=== PATIENT | female | born 1940 | race Caucasian/White ===

== ENCOUNTER 2018-03-26 18:54 | Inpatient (IN) | payer OTHER ==
[~2018-03-26] VITALS: Ht 154.9 cm; Wt 71.2 kg
[~2018-03-26 18:54] MED LIST: ASPIRIN CHILDRE81 MG PO; ATORVASTATIN CA20 MG PO; CIPROFLOXACIN500 MG PO; FIORICET 325 MG1 TAB PO; HYGROTON 25MG T25 MG PO; IMITREX50 MG PO; KLOR-CON 10MEQ10 MEQ PO; LIORESAL 10MG T10 MG PO; LISINOPRIL10 MG PO; MACROBID100 MG PO; METFORMIN ER500 MG PO; METFORMIN HCL500 MG PO; MOTRIN 600 MG600 MG PO; TYLENOL TAB 32325 MG PO; ULTRAM(MONOGRAP50 MG PO
--- NOTE | 2018-03-26 19:55 | CT SCAN REPORT ---
EXAMINATION: CT HEAD WITHOUT CONTRAST CT CERVICAL SPINE WITHOUT CONTRAST CLINICAL INFORMATION: Fall. COMPARISON: Head CT from 08/31/2015. TECHNIQUE: Contiguous axial imaging was performed from the skullbase to vertex without intravenous administration of contrast. Multidetector helical imaging was performed through the cervical spine. DLP: 881.07 mGy-cm. FINDINGS: HEAD: There is no evidence of acute intracranial hemorrhage or territorial infarction. No abnormal mass effect or midline shift is seen. Pires to white matter differentiation is well preserved. No extra-axial fluid collections are identified. There is no evidence of hydrocephalus. There are multiple lacunar infarcts in the deep pires matter structures. Mild small vessel ischemic changes noted in the cerebral white matter. The osseous structures and soft tissues are normal. The mastoid air cells and visualized portions of the paranasal sinuses are well aerated. CERVICAL SPINE: No acute fracture is identified in the cervical spine moderate disc space narrowing and mild posterior subluxation noted at C5-C6. Moderate degenerative endplate spurring also present at C6-C7. Multilevel uncovertebral joint hypertrophy present with facet arthropathy encroaching upon the neural foramina. The atlantoaxial articulation is normally maintained. The paraspinal soft tissues are normal. Moderate atherosclerotic calcifications present at the carotid bifurcations. The lung apices are clear. IMPRESSION: 1. No acute intracranial hemorrhage or territorial infarction. Mild chronic white matter microangiopathy and multiple chronic lacunar infarcts in the basal ganglia. 2. No evidence of acute cervical spine traumatic injury. Multilevel cervical spondylosis.
--- NOTE | 2018-03-26 20:10 | RADIOLOGY REPORT ---
EXAMINATION: XR KNEE, RIGHT CLINICAL INFORMATION: Fall. Rule out fracture. COMPARISON: None TECHNIQUE: Four views of the right knee. FINDINGS: No fracture or dislocation is seen. Chondrocalcinosis is noted within the medial lateral compartments of the knee joint space. No joint effusion is seen. No soft tissue abnormality visible. Scattered vascular calcifications are present. Mild degenerative osseous spurring present along the medial border of the medial compartment of the knee joint space. There is mild ossific spurring along the superior and inferior poles of the patella as well. IMPRESSION: Mild degenerative changes. No acute traumatic findings. Chondrocalcinosis in the knee joint space.
[2018-03-26 21:23] LABS: ABSOLUTE BASOPHIL COUNT 0.1 /CUMM (0.0-0.2); ABSOLUTE EOSINOPHIL COUNT 0.1 /CUMM (0.0-0.7); ABSOLUTE GRANULOCYTE CT 10.8 /CUMM (1.4-6.5); ABSOLUTE LYMPH COUNT 1.2 /CUMM (1.2-3.4); ABSOLUTE MONOCYTE COUNT 0.9 /CUMM (0.10-0.60); BASOPHIL % 0.7 % (0.0-2.0); EOSINOPHIL % 0.4 % (0-5); GRANULOCYTE % 82.6 % (42.2-75.2); HEMATOCRIT 36.5 % (37-47); MEAN CORPUSCULAR HGB 29.9 PG (27.0-31.0); MEAN CORPUSCULAR HGB CONC 33.9 G/DL (33.0-37.0); MEAN CORPUSCULAR VOLUME 88.2 FL (81.0-99.0); PLATELET COUNT 392 /CUMM (130-400); RBC DISTRIBUTION WIDTH 13.6 % (11.5-14.5); RED BLOOD CELL CT 4.13 /CUMM (4.20-5.40); WHITE BLOOD CELL COUNT 13.1 /CUMM (4.8-10.8)
--- NOTE | 2018-03-26 21:39 | RADIOLOGY REPORT ---
EXAMINATION: XR SHOULDER, LEFT CLINICAL INFORMATION: Fall. COMPARISON: Chest radiograph 12/24/2014. TECHNIQUE: 3 views of the left shoulder. FINDINGS: Severe degenerative changes are present in the shoulder with sclerosis and joint space narrowing. Just beneath the undersurface of the joint there are some large well corticated bony fragments seen that may be the residua of old trauma/joint mice. These findings have progressed since the study of 12/24/2014. An acute fracture is not definitely seen. IMPRESSION: Severe degenerative changes in the shoulder with joint mice mice but no acute fracture is seen.
--- NOTE | 2018-03-27 01:16 | ED GENERAL ADULT ---
History of Present Illness General Chief Complaint: Fall Stated Complaint: FALL YESTERDAY Source: patient Exam Limitations: no limitations Vital Signs & Intake/Output Vital Signs & Intake/Output Vital Signs Date Time Temp Pulse Resp B/P B/P Pulse O2 O2 Flow FiO2 Mean Ox Delivery Rate 03/27 0126 97.8 72 20 190/64 97 Room Air 03/27 0000 97.1 71 18 198/68 97 Room Air 03/26 2235 78 216/74 03/26 2225 98.6 78 18 216/74 96 Room Air 03/26 2130 98 Room Air 03/26 2119 87 20 226/86 03/26 2040 98.0 82 18 226/86 96 Room Air 03/26 1905 98.4 88 18 228/81 96 Room Air ED Intake and Output 03/27 0000 03/26 1200 Intake Total 100 Output Total Balance 100 Intake, IV 100 Intake, Oral 0 Patient 145 lb Weight Weight Reported by Patient Measurement Method Allergies Coded Allergies: Carbapenems (Intermediate, RASH 12/12/15) Iodinated Contrast- Oral and IV Dye (Iodinated Contrast Media - IV Dye) ( Intermediate, SWELLING 12/12/15) Penicillins (Intermediate, SWELLING 12/12/15) Sulfa (Sulfonamide Antibiotics) (Intermediate, SWELLING 12/12/15) aspartame (Mild, DIARRHEA 12/12/15) ciprofloxacin (From Cipro) (Mild, NAUSEA 12/12/15) STATINS (MUSCLE PAIN 12/24/14) Triage Note: PT FROM HOME C/O OF FALL ONTO CEMENT STAIRS GOING INTO HER HOUSE WHILE CARRYING GROCERIES. PT STATES THE FALL OCCURED AROUND 1530 YESTERDAY WITH UNKNOWN LOC, UNWITNESSED FALL. PT STATES "I ALMOST DID" PT COMPLAINT OF LEFT SHOULDER PAIN UNABLE TO MOVE, RIGHT KNEE PAIN, AND FRONTAL LEFT FOREHEAD PAIN WHERE PAIN STRUCK HEAD. PT UNSURE OF LAST TETANUS. BP ELEVATED. PTS MANUAL IN TRIAGE 230/80, PT DENIES N/V, CP, JAW OR BILATERAL ARM PAIN, BLURRY VISION OR CHANGE. PTS PAIN 10/10, LAST MEDICATED WITH 650MG TYLENOL PO AROUND 1600. Triage Nurses Notes Reviewed? yes Onset: Abrupt Duration: day(s): Timing: single episode yesterday HPI: 78-year-old female with a history of hypertension, hyperlipidemia, diabetes, hypothyroid, anxiety presenting with left shoulder pain and right knee pain status post mechanical fall yesterday. Patient reports that she was carrying groceries into her house, was carrying too many groceries at one time and lost her balance. States that she fell backwards and struck the back of her head, left shoulder, and right knee on the cement. Denies loss of consciousness. There were no preceding symptoms such as lightheadedness or dizziness before the fall per denies headache, nausea, vomiting, visual changes since. Denies numbness or paresthesias to the extremities. On arrival to the emergency department patient is noted to be hypertensive to 230s over 80s. She currently takes chlorthalidone for her hypertension and reports med compliance. Denies headache, visual changes, chest pain, shortness of breath. (Mariam Collado) Reconcile Medications Acetaminophen (Pain Relief) 650 MG TABLET.ER 1 TAB PO Q8 pain (Reported) Chlorthalidone 25 MG TABLET 1 TAB PO DAILY htn (Reported) Potassium Chloride (Klor-Con M10) 10 MEQ TAB.ER.PRT 1 TAB PO DAILY low k ( Reported) (Lilia ROBERTS,Julian Christianson) Past History Travel History Traveled to [place] past 21 day No Medical History Any Pertinent Medical History? see below for history Neurological: migraine EENT: [place] Cardiovascular: hypertension, hyperlipidemia Gastrointestinal: hiatal hernia Psychiatric: anxiety Endocrine: diabetes, hypothyroidism Cancer(s): melanoma History of MRSA: No History of VRE: No History of CDIFF: No Surgical History Surgical History: N Psychosocial History Who do you live with Patient/Self What is your primary language Romansh Tobacco Use: Quit >30 days ago ETOH Use: denies use Illicit Drug Use: denies illicit drug use Family History Family History, If Any: Relation not specified for: *No pertinent family history Hx Contributory? No (Mariam Collado) Review of Systems Review of Systems Constitutional: Reports: no symptoms. EENTM: Reports: no symptoms. Respiratory: Reports: no symptoms. Cardiovascular: Reports: no symptoms. GI: Reports: no symptoms. Genitourinary: Reports: no symptoms. Musculoskeletal: Reports: see HPI. Skin: Reports: no symptoms. Neurological/Psychological: Reports: no symptoms. Hematologic/Endocrine: Reports: no symptoms. Immunologic/Allergic: Reports: no symptoms. All Other Systems: Reviewed and Negative (Mariam Collado) Physical Exam Physical Exam General Appearance: well developed/nourished, no apparent distress, alert, awake Comments: Primary Survey: Airway: intact Breathing: breath sounds equal bilaterally Circulation: 2+ distal pulses Disability: a&ox3, pupils equally round and reactive Secondary Survey: Head: Normocephalic, atraumatic, nontender, no skull depressions/deformities Ears: No hemotympanum Nose: No epistaxis or septal hematomas Throat/mouth : No oral lacerations, no missing teeth Face: No abrasions/lacerations, no crepitus or deformities Neck: No midline TTP, unrestricted c-spine ROM Heart: Regular rate and rhythm Lungs: Clear to auscultation bilaterally with normal air entry Chest: Nontender, no flail segments Abdomen: Soft, nontender, nondistended, normal bowel sounds Pelvis: Non-tender and stable to AP and lateral compression Extremities: Unable to range the left shoulder, there is diffuse tenderness to palpation of the left shoulder, left upper extremity has sensation intact and 2+ radial pulse. Otherwise there is unrestricted range of motion at all other extremities and joints including the right knee joint. 2+ peripheral pulses in all extremities. Neurologic: Cranial nerves grossly intact, no motor/sensory deficitis, cerebellalr function intact Skin: warm and dry and without ecchymoses or abrasions Back: No midline TTP of T-spine or L-spine Rectal exam: deferred Core Measures ACS in differential dx? Yes CVA/TIA Diagnosis: No Sepsis Present: No Sepsis Focused Exam Completed? No (Yarelis PANCHAL,Mariam) Progress Differential Diagnoses I considered the following diagnoses in my evaluation of the patient: [Shoulder contusion versus sprain versus fracture versus knee contusion versus fracture versus sprain versus hypertension versus hypertensive urgency/emergency versus ACS.] Plan of Care: Orders Procedure Date/time Status Nothing by Mouth 03/27 B Active Pathway - chart 03/27 336 Active House Staff 03/27 336 Active Patient Data 03/27 336 Active Code Status 03/27 336 Active Patient Data 03/27 0149 Active Saline Lock 03/[address] in observation 03/27 129 Active Misc Message 03/27 129 Active ED Holding Orders 03/27 129 Active Vital Signs 03/27 129 Active Code Status 03/27 129 Complete Add-on Test (ER Only) 09/17 0126 Active PT Evaluate & Treat 03/27 UNK Active Occupational Tx Eval & Treat 03/27 UNK Active VTE Mechanical Prophylaxis 03/27 UNK Active Telemetry/Drafting Supervisor 03/27 UNK Active FingerStick- Glucose 03/27 UNK Active SOCIAL WORK CONSULT 03/27 UNK Active TROPONIN LEVEL 03/26 2340 Complete EKG 03/26 2340 Active Add-on Test (ER Only) 03/26 223 Active CULTURE,URINE 03/26 2132 Active Intake & Output 03/26 2130 Active MAGNESIUM 03/26 2100 Complete URINALYSIS 03/26 2047 Complete TROPONIN LEVEL 03/26 2047 Complete COMPREHENSIVE METABOLIC PANEL 03/26 2047 Complete CBC WITHOUT DIFFERENTIAL 03/26 2047 Complete EKG 03/26 2047 Active Current Medications Sig/Reed Start time Last Medication Dose Stop Time Status Admin Amlodipine Besylate 10 MG DAILY 03/27 900 UNVr (Norvasc) Enoxaparin Sodium 40 MG DAILY 03/27 900 UNVr (Lovenox) Labetalol HCl 100 MG BID 03/27 900 UNVr (Trandate) Insulin Aspart 0 TIDAC 03/27 08 UNVr (NovoLOG) Laboratory Tests 03/26/18 2359: Troponin I 0.07 03/26/182131: Urine Color YEL, Urine Clarity HAZY H, Urine pH 6.5, Ur Specific [place] 1.025, Urine Protein >=300 H, Urine Ketones NEG, Urine Nitrite NEG, Urine Bilirubin NEG, Urine Urobilinogen 0.2, Ur Leukocyte Esterase MOD H, Ur Microscopic SEDIMENT EXAMINED, Urine RBC 1-3, Urine WBC 50-75 H, Ur Epithelial Cells MANY H, Urine Bacteria PACKD H, Urine Mucus FEW, Urine Hemoglobin SMALL H, Urine Glucose NEG 03/26/18 2100: Anion Gap 11, Estimated GFR > 60, BUN/Creatinine Ratio 24.4, Glucose 193 H, Calcium 9.6, Magnesium 1.6, Total Bilirubin 0.5, AST 20, ALT 22, Alkaline Phosphatase 92, Troponin I 0.05, Total Protein 6.9, Albumin 3.8, Globulin 3.1, Albumin/Globulin Ratio 1.2, CBC w Diff NO MAN DIFF REQ, RBC 4.13 L, MCV 88.2, MCH 29.9, MCHC 33.9, RDW 13.6, MPV 9.0, Gran % 82.6 H, Lymphocytes % 9.3 L, Monocytes % 7.0, Eosinophils % 0.4, Basophils % 0.7, Absolute Granulocytes 10.8 H, Absolute Lymphocytes 1.2, Absolute Monocytes 0.9 H, Absolute Eosinophils 0.1 , Absolute Basophils 0.1 Microbiology 03/26 2132 URINE ROUT: Urine Culture - RECD Initial EKG is nonischemic and shows LVH with a prolonged QTC. Initial troponin 0.05. Repeat EKG is unchanged. Repeat troponin is 0.07. Blood pressure has improved from 230s over 80s to 190s over 80s. Labs show leukocytosis of 13 and hyponatremia of 130. She states that she has been hyponatremic in the past, likely secondary to her diuretic use. UA is questionable for urine infection, but patient denies any urinary symptoms at this time. Urine culture was sent and antibiotics deferred until culture results. Given patient's rising troponins in the setting of hypertension will admit to telemetry for further evaluation. Initial ED EKG: rhythm (sinus), rate (80's), LVH, Prolonged QTc (Mariam Collado) Departure Departure Disposition: STILL A PATIENT Condition: Stable Clinical Impression Primary Impression: Hypertension Secondary Impressions: Closed head injury, Fall, Hyponatremia, Left shoulder pain Referrals: Alexandru Alva MD (PCP/Family) Departure Forms: Customer Survey General Discharge Information Admission Note Spoke With: Alexandru Alva MD Documentation of Exam: Documentation of any treatments & extenuating circumstances including Concerns Regarding Discharge (functional status, medication knowledge or non-compliance, living conditions, etc.) that warrant an admission rather than observation: [ Telemetry monitoring, hemodynamic monitoring, serial EKGs, serial troponins, cardiology consult if troponins continue to rise, pain control for left shoulder , antihypertensive medications] (Mariam Collado) PA/ELECTRONIC SERVICE TECHNICIAN Co-Sign Statement Statement: ED Attending supervision documentation- [x] I saw and evaluated the patient. I have also reviewed all the pertinent lab results and diagnostic results. I agree with the findings and the plan of care as documented in the PA's/ELECTRONIC SERVICE TECHNICIAN's documentation. [] I have reviewed the ED Record and agree with the PA's/ELECTRONIC SERVICE TECHNICIAN's documentation. [] Additions or exceptions (if any) to the PAs/ELECTRONIC SERVICE TECHNICIAN's note and plan are summarized below: [] (Lilia ROBERTS,Julian Christianson) Critical Care Note Critical Care Note Critical Care Time: non-applicable (Yarelis PANCHAL,Mariam)
[2018-03-27] MEDS ORDERED: CHLORTHALIDONE25 M1 PO (02:56)
[2018-03-27] MEDS ORDERED: KLOR-CON M1010 ME1 PO (02:56)
[2018-03-27] MEDS ORDERED: PAIN RELIEF650 MG PO (03:02)
--- NOTE | 2018-03-27 03:17 | History & Physical ---
Jose FNick palmerh 03/27/18 0313: General Information and HPI Allergies/Medications Allergies: Coded Allergies: Carbapenems (Intermediate, RASH 12/12/15) Iodinated Contrast- Oral and IV Dye (Iodinated Contrast Media - IV Dye) ( Intermediate, SWELLING 12/12/15) Penicillins (Intermediate, SWELLING 12/12/15) Sulfa (Sulfonamide Antibiotics) (Intermediate, SWELLING 12/12/15) aspartame (Mild, DIARRHEA 12/12/15) ciprofloxacin (From Cipro) (Mild, NAUSEA 12/12/15) STATINS (MUSCLE PAIN 12/24/14) Home Med list Acetaminophen (Pain Relief) 650 MG TABLET.ER 1 TAB PO Q8 pain (Reported) Chlorthalidone 25 MG TABLET 1 TAB PO DAILY htn (Reported) Potassium Chloride (Klor-Con M10) 10 MEQ TAB.ER.PRT 1 TAB PO DAILY low k ( Reported) Past History Travel History Traveled to [place] past 21 day No Medical History Neurological: migraine EENT: [place] Cardiovascular: hypertension, hyperlipidemia Gastrointestinal: hiatal hernia Psychiatric: anxiety Endocrine: diabetes, hypothyroidism Cancer(s): melanoma History of MRSA: No History of VRE: No History of CDIFF: No Surgical History Surgical History: N Past Family/Social History Family History Relations & Conditions if any Relation not specified for: *No pertinent family history Psychosocial History ETOH Use: denies use Illicit Drug Use: denies illicit drug use Functional Ability ADLs Independent: dressing, eating, toileting. Core Measures/Misc (03/27) Cerebrovascular Accident CVA/TIA Diagnosis: No Sepsis (View protocol) If YES complete Sepsis Event Note If YES complete Sepsis Event Note Zacarias Azul MD 03/27/18 7280: Core Measures/Misc (03/27) Sepsis (View protocol) If YES complete Sepsis Event Note If YES complete Sepsis Event Note
--- NOTE | 2018-03-27 04:03 | History & Physical ---
Jorge Alberto ROBERTS,Zacarias 03/27/18 0323: General Information and HPI MD Statement: I have seen and personally examined TERRELL PERALES and documented this H&P. The patient is a 78 year old F who presented with a patient stated chief complaint of [FALL]. Source of Information: patient, old records Exam Limitations: no limitations History of Present Illness: Patient is an 78-year-old female with past medical history of hypercholesterolemia, hypertension, diabetes, cluster headache, history of melanoma status post surgery 2 years ago presented with chief complaints of fall. According to her, she usually walks with a walker/cane. Yesterday around 4 PM, she was carrying the groceries into her house. She was going up and down the stairs which were cemented. Anyhow she slept on around 3 stairs and leading to fall on the left shoulder, hit her knee and head. She was having very mild pain initially but later in the night when she was laying in the bed the pain becomes very severe. she is claiming around 1000 and she felt very woozy at that time. She tried Tylenol extra strength without any benefit. She came here for further evaluation. Past medical history- Hypertension-on chlorthalidone and Klor-Con. Type 2 diabetes not on medication Diabetic neuropathy Hypercholesterolemia not on medication; atorvastatin patient has severe muscular pain History of cluster headache without eye involvement History of melanoma status post surgery Allergies-penicillin, statin. She has allergies to multiple medications but she does not know exactly her last History of surgery-hysterectomy around 25 years ago, tonsillectomy in childhood Family history-noncontributory Allergies/Medications Allergies: Coded Allergies: Carbapenems (Intermediate, RASH 12/12/15) Iodinated Contrast- Oral and IV Dye (Iodinated Contrast Media - IV Dye) ( Intermediate, SWELLING 12/12/15) Penicillins (Intermediate, SWELLING 12/12/15) Sulfa (Sulfonamide Antibiotics) (Intermediate, SWELLING 12/12/15) aspartame (Mild, DIARRHEA 12/12/15) ciprofloxacin (From Cipro) (Mild, NAUSEA 12/12/15) STATINS (MUSCLE PAIN 12/24/14) Home Med list Acetaminophen (Pain Relief) 650 MG TABLET.ER 1 TAB PO Q8 pain (Reported) Chlorthalidone 25 MG TABLET 1 TAB PO DAILY htn (Reported) Potassium Chloride (Klor-Con M10) 10 MEQ TAB.ER.PRT 1 TAB PO DAILY low k ( Reported) Past History Travel History Traveled to [place] past 21 day No Medical History Neurological: migraine EENT: [place] Cardiovascular: hypertension, hyperlipidemia Gastrointestinal: hiatal hernia Psychiatric: anxiety Endocrine: diabetes, hypothyroidism Cancer(s): melanoma History of MRSA: No History of VRE: No History of CDIFF: No Surgical History Surgical History: N Past Family/Social History Family History Relations & Conditions if any Relation not specified for: *No pertinent family history Psychosocial History ETOH Use: denies use Illicit Drug Use: denies illicit drug use Functional Ability ADLs Independent: dressing, eating, toileting. Review of Systems Review of Systems Constitutional: Reports: no symptoms. Musculoskeletal: Reports: joint pain. Exam & Diagnostic Data Last 24 Hrs of Vital Signs/I&O Vital Signs Date Time Temp Pulse Resp B/P B/P Pulse O2 O2 Flow FiO2 Mean Ox Delivery Rate 03/27 0126 97.8 72 20 190/64 97 Room Air 03/27 0000 97.1 71 18 198/68 97 Room Air 03/26 2235 78 216/74 03/26 2225 98.6 78 18 216/74 96 Room Air 03/26 2130 98 Room Air 03/26 2119 87 20 226/86 03/26 2040 98.0 82 18 226/86 96 Room Air 03/26 1905 98.4 88 18 228/81 96 Room Air Intake & Output 03/27 0800 03/27 0000 03/26 1600 Intake Total 100 Output Total Balance 100 Intake, IV 100 Intake, Oral 0 Patient 65.771 kg Weight Weight Reported by Patient Measurement Method Physical Exam General Appearance Alert, Oriented X3, Cooperative, No Acute Distress Neck Supple, No JVD Cardiovascular Normal S1, Normal S2 Lungs Clear to Auscultation, Normal Air Movement Abdomen Soft, No Tenderness Neurological Normal Speech Extremities left shoulder movement is restricted due to pain Assessment/Plan Assessment: Patient is an 78-year-old female with past medical history of hypercholesterolemia, hypertension, diabetes, cluster headache, history of melanoma status post surgery 2 years ago presented with chief complaints of fall. At the time of admission vital signs-temperature 98.4, pulse 88, respiratory 18, blood pressure 228/81, SPO2 96% on room air. She was given injection labetalol 20 mg IV twice, tablet labetalol 100 mg once, tablet labetalol 200 mg once, tablet clonidine 0.1 mg, injection hydralazine 5 mg. Blood workup -WBC 13.5, hemoglobin 12.4, platelet count 392, granulocyte 82.6, no band cells, serum sodium 130, potassium 3.9, chloride 96, anion gap 11, carbon dioxide 23, BUN 22, creatinine 0.9, glucose 193, serum calcium 9.6, magnesium 1.6, total bilirubin 0.5, AST 20, ALT 22, alkaline phosphatase 92, troponin I 0.05, 0.07. Urinalysis shows hazy urine, protein more than 300, moderate leukocyte esterase, WBC 50-75, bacteria packed, hemoglobin small. CT scan of the head and cervical spine - 1. No acute intracranial hemorrhage or territorial infarction. Mild chronic white matter microangiopathy and multiple chronic lacunar infarcts in the basal ganglia. 2. No evidence of acute cervical spine traumatic injury. Multilevel cervical spondylosis. X-ray of the knee-Mild degenerative changes. No acute traumatic findings. Chondrocalcinosis in the knee joint space. X-ray shoulder- 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 Problem list- * Uncontrolled hypertension/hypertensive urgency * Mechanical fall leading to painful left shoulder * Left shoulder-no acute fracture, severe degenerative changes; on examination severe restriction of the, left shoulder movement needed further radiological evaluation * Chondrocalcinosis of right knee joint * Type 2 diabetes Assessment and plan - * We will observe the patient to telemetry floor * We will start the patient on tablet amlodipine 10 mg daily * We will start the patient on tab labetalol 100 mg twice daily * pain medication according to sliding scale * CT scan of left shoulder to rule out minor fracture * Orthopedic consult * Physical therapy/OT * Social work consult * Case management consult for placement in the rehabilitation * Fingerstick 3 times daily/at bedtime * Follow HbA1c * CODE STATUS - FULL CODE * Diet - Keeping NPO for possible intervention * DVT prophylaxis -ALPS/Heparin As Ranked By This Provider Problem List: 1. Fall 2. Left shoulder pain 3. UTI (urinary tract infection) Core Measures/Misc (03/27) Acute Coronary Syndrome ACS Diagnosis: No Congestive Heart Failure Congestive Heart Failure Diagnosis No Cerebrovascular Accident CVA/TIA Diagnosis: No VTE (View Protocol) VTE Risk Factors Age>40 No Mechanical VTE Prophylaxis d/t N/A MechProphylax Ordered No VTE Pharm Prophylaxis d/t NA PharmProphylax ordered Sepsis (View protocol) Sepsis Present: No If YES complete Sepsis Event Note If YES complete Sepsis Event Note Alexandru Alva MD 03/27/18 1505: Core Measures/Misc (03/27) Sepsis (View protocol) If YES complete Sepsis Event Note If YES complete Sepsis Event Note Attending MD Review Statement Attending Statement Attending MD Statement: examined this patient, discuss w/resident/PA/MOTHERCRAFT NURSE, agreed w/resident/PA/MOTHERCRAFT NURSE, discussed with family, reviewed EMR data (avail), discussed with nursing, discussed with case mgmt, reviewed images, amended to note Attending Assessment/Plan: Problems: -Accelerated hypertension baseline history of hypertension -Elevation of serum troponin levels -Hyponatremia -Hypothyroidism -T2DM -Dyslipidemia -Left shoulder trauma with markedly reduced range of motion -Chronic lower extremity edema -Urine culture with greater than 100,000 colonies gram-negative rods -Multiple drug allergies and intolerance Plan: -Admit to telemetry -Trend troponin -Cardiology consultation -Echocardiogram -Follow BP -Continue labetalol and amlodipine -Continue maintenance chlorthalidone -Follow electrolytes -Endocrine consultation -Adequate analgesia -Follow urine culture for identification and sensitivities -Trend fever and WBC -Continue intravenous ceftriaxone -Will recontact orthopedics in pursuit of further delineation of injury
[2018-03-27 06:44] VITALS: BP 146/86
--- NOTE | 2018-03-27 07:16 | PN-Observation ---
See Addendum Assessment/Plan Medical Assessment: X-ray shoulder- 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 78-year-old female with past medical history of hypercholesterolemia, hypertension, diabetes, cluster headache, history of melanoma status post surgery 2 years ago presented with chief complaints of fall. On admission date she was given injection labetalol 20 mg IV twice, tablet labetalol 100 mg once, tablet labetalol 200 mg once, tablet clonidine 0.1 mg, injection hydralazine 5 mg. Patient is in observation on the telemetry floor for the following reasons: #Hypertensive Urgency -Patient in observation for management of vitals -Restarted home medication of Chlorthalidone 25 mg qd -Labetalol 100 mg bid -Amlodipine dc'd -follow up BP readings #Left shoulder pain -Mechanical fall leading to painful left shoulder -From X-ray of left shoulder with findings of no acute fracture, however it showed severe degenerative changes -Restriction of left shoulder movement on examination -Pain medications prn -Orthopedics consulted; will not operate at this present time as no findings of an acute fracture -Patient denied follow up MRI scan of the left shoulder #Type 2 diabetes -Insulin, sliding scale -AccuChecks -Hemoglobin A1c 7.0 (H); patient has been off Metformin for more than a week #Hypothyroidism, likely subclinical -TSH elevated 8.7 (H), with nl Free T4 and low Total T3 -Endocrinology consulted; recommended to have follow up TSH/Free T4 in 4-6 weeks as an outpatient -Started Levothyroxine 25 mcg CODE STATUS - FULL CODE Diet - Consistent Carbohydrate 2 DVT prophylaxis -ALPS/Heparin Problem List: 1. Left shoulder pain 2. Hypertensive urgency 3. Diabetes mellitus 4. Hypothyroid Subjective Follow-up For: Left shoulder pain Hypertensive Urgency Diabetes Mellitus Hypothyroidism, Subclinical Subjective: Afebrile overnight. Patient is seen and examined this morning. Patient reports some persistent left shoulder pain. Patient states she feels the shoulder has improved since prior and has some improved range of motion. Patient however denies any chest pain, palpitations, shortness of breath, n/v, diarrhea, and constipation. Patient denies to have a follow up MRI scan due to her anxiety. Orthopedics will not pursue any managment at this time. Review of Systems Constitutional: Reports: see HPI. Objective Last 24 Hrs of Vital Signs/I&O Vital Signs Date Time Temp Pulse Resp B/P B/P Pulse O2 O2 Flow FiO2 Mean Ox Delivery Rate 03/27 1455 97.7 60 18 130/60 96 Room Air 03/27 1124 63 145/60 03/27 0644 97.6 63 19 146/86 98 03/27 0539 97.2 64 18 143/64 97 03/27 0403 97.1 69 18 185/77 03/27 0126 97.8 72 20 190/64 97 Room Air 03/27 0000 97.1 71 18 198/68 97 Room Air 03/26 2235 78 216/74 03/26 2225 98.6 78 18 216/74 96 Room Air 03/26 2130 98 Room Air 03/26 2119 87 20 226/86 03/26 2040 98.0 82 18 226/86 96 Room Air 03/26 1905 98.4 88 18 228/81 96 Room Air Intake & Output 03/27 1600 03/27 0800 03/27 0000 Intake Total 320 100 Output Total Balance 320 100 Intake, IV 100 Intake, Oral 320 0 Patient 145 lb 145 lb Weight Weight Bed scale Reported by Patient Measurement Method Physical Exam General Appearance: Alert, Oriented X3, Cooperative, No Acute Distress Skin: No Rashes, No Breakdown Skin Temp/Moisture Exam: Warm/Dry HEENT: Atraumatic Neck: Supple Cardiovascular: Regular Rate, Normal S1, Normal S2 Lungs: Clear to Auscultation Abdomen: Soft, No Tenderness Neurological: Normal Speech, decreased ROM of left upper extremity; decreased strength 4/5 in left UE Extremities: No Edema, Normal Pulses
[2018-03-27 12:17] LABS: ABSOLUTE BASOPHIL COUNT 0.1 /CUMM (0.0-0.2); ABSOLUTE EOSINOPHIL COUNT 0 /CUMM (0.0-0.7); ABSOLUTE GRANULOCYTE CT 6.4 /CUMM (1.4-6.5); ABSOLUTE LYMPH COUNT 1.9 /CUMM (1.2-3.4); ABSOLUTE MONOCYTE COUNT 0.7 /CUMM (0.10-0.60); BASOPHIL % 0.6 % (0.0-2.0); EOSINOPHIL % 0.4 % (0-5); GRANULOCYTE % 70.7 % (42.2-75.2); HEMATOCRIT 33.3 % (37-47); MEAN CORPUSCULAR HGB CONC 33.8 G/DL (33.0-37.0); MEAN CORPUSCULAR VOLUME 88.7 FL (81.0-99.0); MEAN PLATELET VOLUME 9.7 FL (7.4-10.4); PLATELET COUNT 317 /CUMM (130-400); RBC DISTRIBUTION WIDTH 13.6 % (11.5-14.5); RED BLOOD CELL CT 3.76 /CUMM (4.20-5.40); WHITE BLOOD CELL COUNT 9.1 /CUMM (4.8-10.8)
--- NOTE | 2018-03-27 13:46 | Cons- Cardiology ---
General Information and HPI Consulting Request Date of Consult: 03/27/18 Requested By: Alexandru Alva MD Reason for Consult: Elevated troponin, hypertensive urgency History of Present Illness: The patient is an 78-year-old female with history of hypertension, type 2 diabetes mellitus, hyperlipidemia who presents after a fall. She was carrying groceries into her home when she slipped and fell on her left shoulder. She was initially having mild pain, however later in the night the pain became more severe and she presented for further evaluation. She was noted to have severely elevated blood pressure on arrival. She has had no chest pain. No shortness of breath. No palpitations. No diaphoresis. No lightheadedness or dizziness. No nausea or vomiting. Allergies/Medications Allergies: Coded Allergies: Carbapenems (Intermediate, RASH 12/12/15) Iodinated Contrast- Oral and IV Dye (Iodinated Contrast Media - IV Dye) ( Intermediate, SWELLING 12/12/15) Penicillins (Intermediate, SWELLING 12/12/15) Sulfa (Sulfonamide Antibiotics) (Intermediate, SWELLING 12/12/15) aspartame (Mild, DIARRHEA 12/12/15) ciprofloxacin (From Cipro) (Mild, NAUSEA 12/12/15) STATINS (MUSCLE PAIN 12/24/14) Home Med List: Acetaminophen (Pain Relief) 650 MG TABLET.ER 1 TAB PO Q8 pain (Reported) Chlorthalidone 25 MG TABLET 1 TAB PO DAILY htn (Reported) Potassium Chloride (Klor-Con M10) 10 MEQ TAB.ER.PRT 1 TAB PO DAILY low k ( Reported) Current Medications: Current Medications Sig/Reed Start time Last Medication Dose Route Stop Time Status Admin Acetaminophen 650 MG Q4P PRN 03/27 0400 AC 03/27 PO 0625 Acetaminophen 1,000 MG ONCE ONE 03/26 2245 DC 03/26 N/A 1 UNIT IV 03/26 2259 2252 Acetaminophen 0 .STK-MED ONE 03/26 2245 DC IV Amlodipine Besylate 10 MG DAILY 03/27 0900 DC PO Ceftriaxone Sodium 1,000 MG DAILY 03/27 1330 AC 03/27 IV 1701 Chlorthalidone 25 MG DAILY 03/27 0926 AC 03/27 PO 1125 Clonidine 0 .STK-MED ONE 03/27 0138 DC PO Clonidine 0.1 MG ONCE ONE 03/27 0130 DC 03/27 PO 03/27 0131 0150 Enalaprilat 1.25 MG STAT STA 03/27 0115 CAN IV 03/27 0116 Enoxaparin Sodium 40 MG DAILY 03/27 0900 AC 03/27 SC 1123 Hydralazine HCl 0 .STK-MED ONE 03/27 0139 DC .ROUTE Hydralazine HCl 5 MG ONCE ONE 03/27 0130 DC 03/27 IV 03/27 0131 0150 Insulin Aspart 0 AT BEDTIME 03/27 2100 AC SC Insulin Aspart 0 TIDAC 03/27 0800 AC 03/27 SC 1223 Ketorolac 30 MG ONCE ONE 03/26 2245 DC 03/26 Tromethamine IV 03/26 2246 2252 Ketorolac 0 .STK-MED ONE 03/26 2245 DC Tromethamine .ROUTE Labetalol HCl 100 MG BID 03/27 0900 AC 03/27 PO 1124 Labetalol HCl 200 MG ONCE ONE 03/27 0115 DC 03/27 PO 03/27 0116 0150 Labetalol HCl 20 MG ONCE ONE 03/26 2230 DC 03/26 IV 03/26 223 223 Labetalol HCl 20 MG ONCE ONE 03/26 2100 DC 03/26 IV 03/26 2101 2119 Labetalol HCl 100 MG ONCE ONE 03/26 2100 DC 03/26 PO 03/26 2101 212 Labetalol HCl 0 .STK-MED ONE 03/26 2054 DC IV Levothyroxine Sodium 0.025 MG DAILY AC 03/28 0700 AC PO Lidocaine 1 PAT DAILY 03/27 0900 AC 03/27 TOP 1122 Magnesium Oxide 400 MG ONE ONE 03/27 0930 DC 03/27 PO 03/27 0931 1126 Oxycodone/ 1 TAB Q4P PRN 03/27 0400 AC Acetaminophen PO Review of Systems Review of Systems: No rash. No tremor. No melena. All other systems were reviewed, and were noted to be negative. Past History Travel History Traveled to [place] past 21 day No Medical History Neurological: migraine EENT: [place]ie[place] Cardiovascular: hypertension, hyperlipidemia Respiratory: NONE Gastrointestinal: hiatal hernia Hepatic: NONE Renal: NONE Psychiatric: anxiety Endocrine: diabetes, hypothyroidism Blood Disorders: NONE Cancer(s): melanoma Surgical History Surgical History: none Family History Relations & Conditions If Any: MOTHER Heart disease FATHER Heart disease Psychosocial History Where Do You Live? Home Smoking Status: Former Smoker ETOH Use: denies use Illicit Drug Use: denies illicit drug use Functional Ability ADLs Independent: dressing, eating, toileting. Exam & Diagnostic Data Vital Signs and I&O Vital Signs Date Time Temp Pulse Resp B/P B/P Pulse O2 O2 Flow FiO2 Mean Ox Delivery Rate 03/27 1455 97.7 60 18 130/60 96 Room Air 03/27 1124 63 145/60 03/27 0644 97.6 63 19 146/86 98 03/27 0539 97.2 64 18 143/64 97 03/27 0403 97.1 69 18 185/77 03/27 0126 97.8 72 20 190/64 97 Room Air 03/27 0000 97.1 71 18 198/68 97 Room Air 03/26 2235 78 216/74 03/26 2225 98.6 78 18 216/74 96 Room Air 03/26 2130 98 Room Air 03/26 2119 87 20 226/86 03/26 2040 98.0 82 18 226/86 96 Room Air 03/26 1905 98.4 88 18 228/81 96 Room Air Intake & Output 03/27 1600 03/27 0800 03/27 0000 03/26 1600 03/26 0800 03/26 0000 Intake Total 320 100 Output Total Balance 320 100 Intake, IV 100 Intake, Oral 320 0 Patient 145 lb 145 lb Weight Weight Bed scale Reported by Patient Measurement Method Physical Exam: Gen: The patient is in no acute distress HEENT: Normal nose, ears, and oropharynx. Pupils equal bilaterally. Conjunctiva normal. Neck: Supple with no JVD, no masses, and no thyromegaly Lungs: Clear to auscultation with normal respiratory effort Heart: RRR, S1, S2, no murmurs. No peripheral edema, 2+ pulses in the lower extremities bilaterally Abdomen: Soft, nontender, no masses. No hepatomegaly. No splenomegaly Extremities: No clubbing or cyanosis. Normal muscle strength in the upper and lower extremities Skin: Normal skin turgor with no skin ulcers or lesions noted. Neuro: Cranial nerves intact. Sensation intact Psych: Alert and oriented x 3 with appropriate affect Labs/Deepak Results: Laboratory Tests 03/27 03/27 03/26 0934 1991 1319 Chemistry Sodium (137 - 145 mmol/L) 129 L Potassium (3.5 - 5.1 mmol/L) 4.2 Chloride (98 - 107 mmol/L) 97 L Carbon Dioxide (22 - 30 mmol/L) 23 Anion Gap (5 - 16) 10 BUN (7 - 17 mg/dL) 22 H Creatinine (0.5 - 1.0 mg/dL) 1.0 Estimated GFR (>60 ml/min) 53 L BUN/Creatinine Ratio (7 - 25 %) 22.0 Hemoglobin A1c (4.2 - 5.8 %) 7.0 H Magnesium (1.6 - 2.3 mg/dL) 1.6 Troponin I (< 0.11 ng/ml) 0.11 *H 0.07 TSH (0.270 - 4.200 uIU/mL) 8.700 H Free T4 (0.85 - 1.93 ng/dL) 1.02 Total T3 (0.97 - 1.69 ng/mL) 0.96 L Hematology CBC w Diff NO MAN DIFF REQ WBC (4.8 - 10.8 /CUMM) 9.1 RBC (4.20 - 5.40 /CUMM) 3.76 L Hgb (12.0 - 16.0 G/DL) 11.3 L Hct (37 - 47 %) 33.3 L MCV (81.0 - 99.0 FL) 88.7 MCH (27.0 - 31.0 PG) 30.0 MCHC (33.0 - 37.0 G/DL) 33.8 RDW (11.5 - 14.5 %) 13.6 Plt Count (130 - 400 /CUMM) 317 MPV (7.4 - 10.4 FL) 9.7 Gran % (42.2 - 75.2 %) 70.7 Lymphocytes % (20.5 - 51.1 %) 20.9 Monocytes % (1.7 - 9.3 %) 7.4 Eosinophils % (0 - 5 %) 0.4 Basophils % (0.0 - 2.0 %) 0.6 Absolute Granulocytes (1.4 - 6.5 /CUMM) 6.4 Absolute Lymphocytes (1.2 - 3.4 /CUMM) 1.9 Absolute Monocytes (0.10 - 0.60 /CUMM) 0.7 H Absolute Eosinophils (0.0 - 0.7 /CUMM) 0 Absolute Basophils (0.0 - 0.2 /CUMM) 0.1 Immunology Thyroglobulin Antibody (< 61 U/mL) 28 Thyroid Peroxidase Ab (< 61 U/mL) 32 03/26 03/26 2132 2100 Chemistry Sodium (137 - 145 mmol/L) 130 L Potassium (3.5 - 5.1 mmol/L) 3.9 Chloride (98 - 107 mmol/L) 96 L Carbon Dioxide (22 - 30 mmol/L) 23 Anion Gap (5 - 16) 11 BUN (7 - 17 mg/dL) 22 H Creatinine (0.5 - 1.0 mg/dL) 0.9 Estimated GFR (>60 ml/min) > 60 BUN/Creatinine Ratio (7 - 25 %) 24.4 Glucose (65 - 99 mg/dL) 193 H Calcium (8.4 - 10.2 mg/dL) 9.6 Magnesium (1.6 - 2.3 mg/dL) 1.6 Total Bilirubin (0.2 - 1.3 mg/dL) 0.5 AST (14 - 36 U/L) 20 ALT (9 - 52 U/L) 22 Alkaline Phosphatase (<127 U/L) 92 Troponin I (< 0.11 ng/ml) 0.05 Total Protein (6.3 - 8.2 g/dL) 6.9 Albumin (3.5 - 5.0 g/dL) 3.8 Globulin (1.9 - 4.2 gm/dL) 3.1 Albumin/Globulin Ratio (1.1 - 2.2 %) 1.2 Hematology CBC w Diff NO MAN DIFF REQ WBC (4.8 - 10.8 /CUMM) 13.1 H RBC (4.20 - 5.40 /CUMM) 4.13 L Hgb (12.0 - 16.0 G/DL) 12.4 Hct (37 - 47 %) 36.5 L MCV (81.0 - 99.0 FL) 88.2 MCH (27.0 - 31.0 PG) 29.9 MCHC (33.0 - 37.0 G/DL) 33.9 RDW (11.5 - 14.5 %) 13.6 Plt Count (130 - 400 /CUMM) 392 MPV (7.4 - 10.4 FL) 9.0 Gran % (42.2 - 75.2 %) 82.6 H Lymphocytes % (20.5 - 51.1 %) 9.3 L Monocytes % (1.7 - 9.3 %) 7.0 Eosinophils % (0 - 5 %) 0.4 Basophils % (0.0 - 2.0 %) 0.7 Absolute Granulocytes (1.4 - 6.5 /CUMM) 10.8 H Absolute Lymphocytes (1.2 - 3.4 /CUMM) 1.2 Absolute Monocytes (0.10 - 0.60 /CUMM) 0.9 H Absolute Eosinophils (0.0 - 0.7 /CUMM) 0.1 Absolute Basophils (0.0 - 0.2 /CUMM) 0.1 Urines Urine Color (YEL,AMB,STR) YEL Urine Clarity (CLEAR) HAZY H Urine pH (5.0 - 8.0) 6.5 Ur Specific [place] (1.001 - 1.035) 1.025 Urine Protein (NEG,<30 MG/DL) >=300 H Urine Ketones (NEG) NEG Urine Nitrite (NEG) NEG Urine Bilirubin (NEG) NEG Urine Urobilinogen (0.1 - 1.0 EU/dl) 0.2 Ur Leukocyte Esterase (NEG) MOD H Ur Microscopic SEDIMENT EXAMINED Urine RBC (0 - 5 /HPF) 1-3 Urine WBC (0 - 2 /HPF) 50-75 H Ur Epithelial Cells (NONE,FEW) MANY H Urine Bacteria (NEG/NONE) PACKD H Urine Mucus (FEW,NONE) FEW Urine Hemoglobin (NEG) SMALL H Urine Glucose (N MG/DL) NEG Diagnostic Data EKG Results EKG tracings independently reviewed, and reveals normal sinus rhythm at 71, left ventricular hypertrophy, nonspecific ST abnormality Other Results Head CT: 1. No acute intracranial hemorrhage or territorial infarction. Mild chronic white matter microangiopathy and multiple chronic lacunar infarcts in the basal ganglia. 2. No evidence of acute cervical spine traumatic injury. Multilevel cervical spondylosis. Echocardiogram 12/25/14 Normal size left ventricle. Mild concentric left ventricular hypertrophy. Normal left ventricular ejection fraction visually estimated at > 65 Abnormal relaxation filling pattern of the left ventricle for age (stage 1 diastolic dysfunction). Mildly increased resting LVOT velocity (1.44 m/s). Mild right ventricular dilatation. Normal atrial size. Trace mitral regurgitation. No aortic valve stenosis or regurgitation. Trace tricuspid regurgitation. Right ventricular systolic pressure estimated at 37 mmHg. Trace pulmonic regurgitation. Assessment/Plan Assessment/Plan The patient is an 78-year-old female with history of hypertension, type 2 diabetes mellitus, and hyperlipidemia who presents after a fall. She is noted to have severely elevated blood pressure with mild troponin elevation. She denies any chest discomfort or shortness of breath. She takes chlorthalidone as an outpatient for hypertension. She notes that she has had difficulty tolerating other medications in the past. Labetalol has been started, and blood pressure is now under control. She is noted to have elevated TSH with normal free T4 consistent with subclinical hypothyroidism. Third troponin was slightly elevated at 0.11. The mildly elevated troponin likely represents demand ischemia secondary to the fall and elevated blood pressure. The patient has not had any definite cardiac symptoms Recommendations: * Continue chlorthalidone and labetalol for blood pressure control * Repeat serial troponin until troponin begins to decrease * Monitor on telemetry * Echocardiogram Consult Acknowledgment - Thank you for your consult request.
[2018-03-27 14:55] VITALS: BP 130/60
--- NOTE | 2018-03-27 15:05 | Admission Certification ---
Admission Certification Certification Statement - As attending physician, I certify that at the time of - admission, based on clinical presentation, severity of - symptoms, need for further diagnostic testing and - therapeutic interventions, and risk of adverse outcomes - without in-hospital treatment, in my clinical assessment, - this patient requires an acute hospital stay for a minimum - of two nights or longer. I have also considered psychsocial - factors such as support system, advanced age, financial - issues, cognitive issues, and failed out-patient treatments, - past re-admission history, safety of patient, and lack of - compliance as applicable. Specific rationale supporting this admission is: Patient admitted with accelerated hypertension now with rising troponin levels which need evaluation in addition patient found to be hypothyroid and hyponatremic both of which need further workup.
--- NOTE | 2018-03-27 15:44 | Cons- Endocrinology ---
General Information and HPI Consulting Request Date of Consult: 03/27/18 Requested By: Dr. Alva Reason for Consult: evaluation and management of abnormal thyroid function test Source of Information: patient, old records Exam Limitations: no limitations History of Present Illness: 78-year-old female with past medical history of hypercholesterolemia , intolerance to statin, hypertension, diabetes type 2 with hx of intolerance to oral antidiabetic medications, cluster headache, history of melanoma status post surgery 2 years ago was admitted to after a fall. Her BP was as high as 228/ 86 and her troponin was positive of 0.11. BP has improved after she received Labetolol. With regards to diabetes, she has been on diet control. Her HbA1c is 7.0%. In hospital, she was put on Novolog coverage before meals and Novolog coverage at bedtime. Her FSG were 207 and 174. Since 2008, her TSH has been between 4.61 and 9.741. On admission, her blood work showed sodium of 129 and 130. She was on Chlorthalidone 25 mg daily prior to admission. In addition, she was found to have positive UA suggestive of UTI and she was put on Ceftriaxone. Allergies/Medications Allergies: Coded Allergies: Carbapenems (Intermediate, RASH 12/12/15) Iodinated Contrast- Oral and IV Dye (Iodinated Contrast Media - IV Dye) ( Intermediate, SWELLING 12/12/15) Penicillins (Intermediate, SWELLING 12/12/15) Sulfa (Sulfonamide Antibiotics) (Intermediate, SWELLING 12/12/15) aspartame (Mild, DIARRHEA 12/12/15) ciprofloxacin (From Cipro) (Mild, NAUSEA 12/12/15) STATINS (MUSCLE PAIN 12/24/14) Home Med List: Acetaminophen (Pain Relief) 650 MG TABLET.ER 1 TAB PO Q8 pain (Reported) Chlorthalidone 25 MG TABLET 1 TAB PO DAILY htn (Reported) Potassium Chloride (Klor-Con M10) 10 MEQ TAB.ER.PRT 1 TAB PO DAILY low k ( Reported) Review of Systems Review of Systems Constitutional: Reports: see HPI. Cardiovascular: Denies: chest pain. Respiratory: Denies: short of breath. GI: Denies: abdominal pain. Genitourinary: Reports: see HPI. Musculoskeletal: Reports: see HPI. Hematologic/Endocrine: Reports: see HPI. Past History Travel History Traveled to [place] past 21 day No Medical History Neurological: migraine EENT: [place] Cardiovascular: hypertension, hyperlipidemia Respiratory: NONE Gastrointestinal: hiatal hernia Hepatic: NONE Renal: NONE Psychiatric: anxiety Endocrine: diabetes, hypothyroidism Blood Disorders: NONE Cancer(s): melanoma Surgical History Surgical History: none Family History Relations & Conditions If Any: Relation not specified for: *No pertinent family history Psychosocial History Where Do You Live? Home Smoking Status: Former Smoker ETOH Use: denies use Illicit Drug Use: denies illicit drug use Functional Ability ADLs Independent: dressing, eating, toileting. Exam & Diagnostic Data Last 24 Hrs of Vital Signs/I&O Vital Signs Date Time Temp Pulse Resp B/P B/P Pulse O2 O2 Flow FiO2 Mean Ox Delivery Rate 03/27 1455 97.7 60 18 130/60 96 Room Air 03/27 1124 63 145/60 03/27 0644 97.6 63 19 146/86 98 03/27 0539 97.2 64 18 143/64 97 03/27 0403 97.1 69 18 185/77 03/27 0126 97.8 72 20 190/64 97 Room Air 03/27 0000 97.1 71 18 198/68 97 Room Air 03/26 2235 78 216/74 03/26 2225 98.6 78 18 216/74 96 Room Air 03/26 2130 98 Room Air 03/26 2119 87 20 226/86 03/26 2040 98.0 82 18 226/86 96 Room Air 03/26 1905 98.4 88 18 228/81 96 Room Air Intake & Output 03/27 1600 03/27 0800 03/27 0000 Intake Total 100 Output Total Balance 100 Intake, IV 100 Intake, Oral 0 Patient 145 lb 145 lb Weight Weight Bed scale Reported by Patient Measurement Method Physical Exam General Appearance: anxious Neck: normal inspection Respiratory: lungs clear Cardiovascular: regular rate/rhythm Gastrointestinal: soft, non-tender Extremities: no edema Assessment/Plan Assessment/Plan 78-year-old female with past medical history of hypercholesterolemia , intolerance to statin, hypertension, diabetes type 2 with hx of intolerance to oral antidiabetic medications, cluster headache, history of melanoma status post surgery 2 years ago was admitted to for hypertension urgency after a fall. She was found to have positive troponin, hyponatremia, abnormal TFT and UTI. 1. abnormal TFT ---as her TSH has been mildly elevated since 2008, most likely she has subclinical hypothyroidism. Her her sodium is as low as 129, I agree with putting patient on low dose thyroid hormone replacement-- Levothyroxine 25 mcg daily; ---recommend checking thyroid antibpdy panel and having a baseline thyroid u.s as outpatient; ---repeat TSH, free T4 in 4-6 weeks. 2. DM type 2 ---recommend changing the diet to consistent carbohydrates 1 diet; --- adjust Novolog coverage before meals and Novolog coverage at bedtime; detail see the inpatient DM orders; ---monitor FSGs. 3. Hyponatremia ---recommend holding off on Chlorthalidone; ---encourage po intake; ---monitor electrolytes. will follow. Consult Acknowledgment - Thank you for your consult request.
[2018-03-27 21:50] VITALS: BP 140/60
[2018-03-28 06:52] VITALS: BP 158/60
--- NOTE | 2018-03-28 07:38 | PN- Housestaff ---
Daisy Alcocer 03/28/18 0738: Subjective Follow-up For: Left shoulder pain Hypertensive Urgency Diabetes Mellitus Hypothyroidism, Subclinical Elevated Troponin Positive Urine culture Subjective: Afebrile overnight. Patient is seen and examined this morning. Patient is seen and examined this morning. Patient had a 6 beat V-Tach around 10 pm last night with a HR of 81. Patient reports no active chest pain or palpitations. Patient however does report pain in her left shoulder from prior, rating is as a 10 out of 10. Patient states her pain patch had fallen off last night and was not replaced. Patient does also report 4 bouts of diarrhea but no fevers, chills, and abdominal pain. Review of Systems Constitutional: Reports: see HPI. Objective Last 24 Hrs of Vital Signs/I&O Vital Signs Date Time Temp Pulse Resp B/P B/P Pulse O2 O2 Flow FiO2 Mean Ox Delivery Rate 03/28 0652 98.0 65 18 158/60 96 Room Air 03/27 2150 98.5 68 16 140/60 96 Room Air 03/27 2141 98 166/86 03/27 1455 97.7 60 18 130/60 96 Room Air 03/27 1124 63 145/60 Intake & Output 03/28 1600 03/28 0800 03/28 0000 Intake Total 400 Output Total Balance 400 Intake, Oral 400 Patient 157 lb Weight Physical Exam General Appearance: Alert, Oriented X3, Cooperative, No Acute Distress Skin: No Rashes, No Breakdown Skin Temp/Moisture Exam: Warm/Dry HEENT: Atraumatic Neck: Supple, No JVD Cardiovascular: Regular Rate, Normal S1, Normal S2 Lungs: Clear to Auscultation Abdomen: Soft, No Tenderness Extremities: decreased ROM of left upper extremity Assessment/Plan Assessment: X-ray shoulder- 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 78-year-old female with past medical history of hypercholesterolemia, hypertension, diabetes, cluster headache, history of melanoma status post surgery 2 years ago presented with chief complaints of fall. On admission date she was given injection labetalol 20 mg IV twice, tablet labetalol 100 mg once, tablet labetalol 200 mg once, tablet clonidine 0.1 mg, injection hydralazine 5 mg. Patient is admitted to the telemetry floor for the following reasons: #Hypertensive Urgency -Patient initially placed in observation and has subsequently been admitted 03/27 for management of vitals and resolving blood pressures -Restarted home medication of Chlorthalidone 25 mg qd -Labetalol 100 mg bid -Amlodipine dc'd -follow up BP readings #Left shoulder pain -Mechanical fall leading to painful left shoulder -From X-ray of left shoulder with findings of no acute fracture, however it showed severe degenerative changes -Restriction of left shoulder movement on examination -Pain medications prn -Orthopedics consulted; will not operate at this present time as no findings of an acute fracture -Patient denied follow up MRI scan of the left shoulder #Elevated Troponins, with no active chest pain -Patient had normal ECG with elevations in troponin, likely related to demand ischemia secondary to the fall and the elevated blood pressures -followed up troponins until decreased, .11 -> .26 -> .22 -Patient was admitted 03/27 due to recent elevations in troponin level; also patient had positive urine cultures which grew Klebsiella Oxytoca - started Ceftriaxone but discontinued as patient was asymptomatic, and also we are subsequently monitoring the elevated blood pressures. #Type 2 diabetes -Insulin, sliding scale -AccuChecks -Hemoglobin A1c 7.0 (H); patient has been off Metformin for more than a week #Hypothyroidism, likely subclinical -TSH elevated 8.7 (H), with nl Free T4 and low Total T3 -Endocrinology consulted; recommended to have follow up TSH/Free T4 in 4-6 weeks as an outpatient -Started Levothyroxine 25 mcg CODE STATUS - FULL CODE Diet - Consistent Carbohydrate 2 DVT prophylaxis -ALPS/Heparin Problem List: 1. Left shoulder pain 2. Hypertensive urgency 3. Diabetes mellitus 4. Hypothyroid 5. Elevated troponin Pain Ratin Pain Location: left shoulder Pain Goal: Pain 7 or less Pain Plan: prn meds Tomorrow's Labs & Rationales: routine Alexandru Alva MD 03/28/18 1430: Attending MD Review Statement Attending Statement Attending MD Statement: examined this patient, discuss w/resident/PA/CLASSIFICATION COUNSELOR, agreed w/resident/PA/CLASSIFICATION COUNSELOR, reviewed EMR data (avail), discussed with case mgmt, amended to note Attending Assessment/Plan: Mrs. Siegel was interviewed and examined. Her EMR was reviewed. Her main complaint is shoulder pain. She does not request narcotic analgesics. She has remained afebrile. Heart and respiratory rates are satisfactory. BP control is much improved. She did have a short episode of NSVT overnight. She is in no acute distress. Heart and lung exams are benign. Sodium today is 127 with mild impairment of renal function. Her CBCs stable without leukocytosis. Urine culture is growing greater than 100,000 colonies of Klebsiella oxytoca which is resistant to ampicillin but otherwise sensitive to all. This most likely represents asymptomatic bacteriuria as patient has been asymptomatic, afebrile, with a mild leukocytosis which corrected quite promptly. Reading of her echocardiogram is still pending. At this point if there are no major abnormalities on her echocardiogram. She wishes to continue her chlorthalidone so I will advise her to liberalize her salt intake. I will follow-up on her transition visit. We will continue her on her labetalol. We have started L-thyroxine and we will have her continue. As she does not wish narcotics we will use NSAIDs for analgesia. Home physical therapy will be scheduled. We will continue to monitor her for glycemic control without meds at this time. There is no need for home sliding scale at this point. Should we need to reinstitute therapy she has tolerated pioglitazone. Her CMR has been reviewed and signed. We will call to arrange a transition visit.
[2018-03-28 08:38] LABS: ABSOLUTE BASOPHIL COUNT 0.1 /CUMM (0.0-0.2); ABSOLUTE EOSINOPHIL COUNT 0.2 /CUMM (0.0-0.7); ABSOLUTE GRANULOCYTE CT 4.1 /CUMM (1.4-6.5); ABSOLUTE MONOCYTE COUNT 0.6 /CUMM (0.10-0.60); BASOPHIL % 1.2 % (0.0-2.0); EOSINOPHIL % 3.4 % (0-5); GRANULOCYTE % 58.5 % (42.2-75.2); HEMATOCRIT 32.4 % (37-47); MEAN CORPUSCULAR HGB 30.3 PG (27.0-31.0); MEAN CORPUSCULAR VOLUME 88.9 FL (81.0-99.0); MEAN PLATELET VOLUME 9.7 FL (7.4-10.4); PLATELET COUNT 337 /CUMM (130-400); RBC DISTRIBUTION WIDTH 13.4 % (11.5-14.5); RED BLOOD CELL CT 3.64 /CUMM (4.20-5.40)
--- NOTE | 2018-03-28 09:02 | Patient Discharge Instructions ---
Discharge Instructions General Discharge Information You were seen/treated for: Left Shoulder Pain Elevated Blood Pressure You had these procedures: Shoulder X-Ray Watch for these problems: If you experience any worsening pain symptoms in your left shoulder, dizziness, lightheadedness, fatigue, and/or fevers please follow up with your PCP. Special Instructions: Please follow up with your PCP within one week. Follow up with [employer] [facility] [employer] for a repeat TFT in 4-6 weeks and to obtain thyroid ultrasound as outpatient. Please continue to take your home medications. Diet Continue normal diet: No Recommended Diet: Diabetic Activity Full Activity/No Limits: No Activity Self Limited: Yes Acute Coronary Syndrome Inclusion Criteria At DC or during hospital stay patient has or had the following: ACS DIAGNOSIS No Discharge Core Measures Meds if any: Prescribed or Continued at Discharge Meds if any: NOT Prescribed or Continued at Discharge Congestive Heart Failure Inclusion Criteria At DC or during hospital stay patient has or had the following: CHF DIAGNOSIS No Discharge Core Measures Meds if any: Prescribed or Continued at Discharge Meds if any: NOT Prescribed or Continued at Discharge Cerebrovascular accident Inclusion Criteria At DC or during hospital stay patient has or had the following: CVA/TIA Diagnosis No Discharge Core Measures Meds if any: Prescribed or Continued at Discharge Meds if any: NOT Prescribed or Continued at Discharge Venous thromboembolism Inclusion Criteria VTE Diagnosis No VTE Type NONE VTE Confirmed by (Test) NONE Discharge Core Measures - Per Current guidelines, there needs to be overlap - treatment for the first 5 days of Warfarin therapy. - If discharged on Warfarin prior to 5 days of - overlap therapy, the patient will need to be - assessed for post discharge needs including - *Post discharge parental anticoagulation - *Warfarin and/or parental anticoagulation education - *Follow up date to check INR post discharge At least 5 days overlap therapy as Inpatient No Meds if any: Prescribed or Continued at Discharge Note: Overlap Therapy is Warfarin and Anticoagulant Meds if any: NOT Prescribed or Continued at Discharge
--- NOTE | 2018-03-28 11:19 | PN- Diabetes ---
Assessment/Plan Diabetes Assessment: 78-year-old female with past medical history of hypercholesterolemia , intolerance to statin, hypertension, diabetes type 2 with hx of intolerance to oral antidiabetic medications, cluster headache, history of melanoma status post surgery 2 years ago was admitted to for hypertension urgency after a fall. She was found to have positive troponin, hyponatremia, abnormal TFT and UTI. Her anti TPO was 32 and anti TG was 28. She was started on Levothyroxine 25 mcg daily on 03/27/2018. She is on Novolog coverage before meals and Novolog coverage at bedtime. Her FSGs were 144, 180 and 137. Am lab showed sodium of 127 which is lower. The peak of Troponin was 0.26. Plan: 1. Thyroid: continue Levothyroxine 25 mcg daily for now; repeat TFT in 4-6 weeks; obtain thyroid u.s as outpatient 2. DM: continue monitoring FSGs; continue the current Novolog coverage before meals and Novolog coverage at bedtime; 3. hyponatremia-- sodium level is worse recommend holding off on Chlorthalidone will follow. Subjective Subjective: She didn't feel well this morning. Objective Last 24 Hrs of Vital Signs/I&O Vital Signs Date Time Temp Pulse Resp B/P B/P Pulse O2 O2 Flow FiO2 Mean Ox Delivery Rate 03/28 0928 80 142/80 03/28 0652 98.0 65 18 158/60 96 Room Air 03/27 2150 98.5 68 16 140/60 96 Room Air 03/27 2141 98 166/86 03/27 1455 97.7 60 18 130/60 96 Room Air Intake & Output 03/28 1600 03/28 0800 03/28 0000 Intake Total 100 400 Output Total Balance 100 400 Intake, Oral 100 400 Patient 157 lb Weight Findings Pertinent Lab/Deepak Results: Laboratory Tests 03/28 03/27 0710 1955 Chemistry Sodium (137 - 145 mmol/L) 127 L Potassium (3.5 - 5.1 mmol/L) 4.4 Chloride (98 - 107 mmol/L) 95 L Carbon Dioxide (22 - 30 mmol/L) 23 Anion Gap (5 - 16) 9 BUN (7 - 17 mg/dL) 28 H Creatinine (0.5 - 1.0 mg/dL) 1.0 Estimated GFR (>60 ml/min) 53 L BUN/Creatinine Ratio (7 - 25 %) 28.0 H Magnesium (1.6 - 2.3 mg/dL) 2.1 Troponin I (< 0.11 ng/ml) 0.22 *H 0.26 *H Hematology CBC w Diff NO MAN DIFF REQ WBC (4.8 - 10.8 /CUMM) 7.0 RBC (4.20 - 5.40 /CUMM) 3.64 L Hgb (12.0 - 16.0 G/DL) 11.0 L Hct (37 - 47 %) 32.4 L MCV (81.0 - 99.0 FL) 88.9 MCH (27.0 - 31.0 PG) 30.3 MCHC (33.0 - 37.0 G/DL) 34.0 RDW (11.5 - 14.5 %) 13.4 Plt Count (130 - 400 /CUMM) 337 MPV (7.4 - 10.4 FL) 9.7 Gran % (42.2 - 75.2 %) 58.5 Lymphocytes % (20.5 - 51.1 %) 28.7 Monocytes % (1.7 - 9.3 %) 8.2 Eosinophils % (0 - 5 %) 3.4 Basophils % (0.0 - 2.0 %) 1.2 Absolute Granulocytes (1.4 - 6.5 /CUMM) 4.1 Absolute Lymphocytes (1.2 - 3.4 /CUMM) 2.0 Absolute Monocytes (0.10 - 0.60 /CUMM) 0.6 Absolute Eosinophils (0.0 - 0.7 /CUMM) 0.2 Absolute Basophils (0.0 - 0.2 /CUMM) 0.1
--- NOTE | 2018-03-28 12:21 | PN- Cardiology ---
Subjective Subjective: Patient reports that she is feeling well from a cardiac standpoint. No chest pain. No palpitations. No diaphoresis. No lightheadedness or dizziness. She continues to complain of left shoulder pain secondary to her fall. Hypertension is mostly under control. Objective Vital Signs and I&Os Vital Signs Date Time Temp Pulse Resp B/P B/P Pulse O2 O2 Flow FiO2 Mean Ox Delivery Rate 03/28 0928 80 142/80 03/28 0652 98.0 65 18 158/60 96 Room Air 03/27 2150 98.5 68 16 140/60 96 Room Air 03/27 2141 98 166/86 03/27 1455 97.7 60 18 130/60 96 Room Air Intake & Output 03/28 1600 03/28 0800 03/28 0000 03/27 1600 03/27 0800 03/27 0000 Intake Total 100 400 320 100 Output Total Balance 100 400 320 100 Intake, IV 100 Intake, Oral 100 400 320 0 Patient 157 lb 145 lb 145 lb Weight Weight Bed scale Reported by Patient Measurement Method Physical Exam: Gen: NAD HEENT: normal Lungs: clear to auscultation, normal resp. effort Heart: RRR, S1, S2, no murmurs Abdomen: Soft, nontender, no masses Extremities: No clubbing, cyanosis, or edema. Neuro: Alert and oriented x 3, cranial nerves intact Current Medications: Current Medications Sig/Reed Start time Last Medication Dose Route Stop Time Status Admin Acetaminophen 650 MG Q4P PRN 03/27 0400 AC 03/28 PO 0657 Ceftriaxone Sodium 1,000 MG DAILY 03/27 1330 AC 03/28 IV 0928 Chlorthalidone 25 MG DAILY 03/28 09 AC 03/28 PO 0928 Chlorthalidone 25 MG DAILY 03/27 0926 DC 03/27 PO 1125 Enoxaparin Sodium 40 MG DAILY 03/27 09 AC 03/28 SC 0928 Insulin Aspart 0 AT BEDTIME 03/27 2100 AC SC Insulin Aspart 0 TIDAC 03/27 08 AC 03/27 SC 1223 Labetalol HCl 100 MG BID 03/27 09 AC 03/28 PO 0928 Levothyroxine Sodium 0.025 MG DAILY AC 03/28 0700 AC 03/28 PO 0651 Lidocaine 1 PAT DAILY 03/27 09 03/28 TOP 0954 Magnesium Oxide 0 .STK-MED ONE 09/18 0020 DC PO Magnesium Oxide 400 MG BID 03/279 AC 03/28 PO 03/30 09 0929 Oxycodone/ 1 TAB Q4P PRN 03/27 0400 AC Acetaminophen PO Results Last 48 Hrs of Labs/Mics: Laboratory Tests 03/28/18 0710: Anion Gap 9, Estimated GFR 53 L, BUN/Creatinine Ratio 28.0 H, Magnesium 2.1, Troponin I 0.22 *H, CBC w Diff NO MAN DIFF REQ, RBC 3.64 L, MCV 88.9, MCH 30.3, MCHC 34.0, RDW 13.4, MPV 9.7, Gran % 58.5, Lymphocytes % 28.7, Monocytes % 8.2, Eosinophils % 3.4, Basophils % 1.2, Absolute Granulocytes 4.1, Absolute Lymphocytes 2.0, Absolute Monocytes 0.6, Absolute Eosinophils 0.2, Absolute Basophils 0.1 03/27/181954: Troponin I 0.26 *H 03/27/18 0934: Troponin I 0.11 *H, CBC w Diff NO MAN DIFF REQ, RBC 3.76 L, MCV 88.7, MCH 30.0, MCHC 33.8, RDW 13.6, MPV 9.7, Gran % 70.7, Lymphocytes % 20.9, Monocytes % 7.4, Eosinophils % 0.4, Basophils % 0.6, Absolute Granulocytes 6.4, Absolute Lymphocytes 1.9, Absolute Monocytes 0.7 H, Absolute Eosinophils 0, Absolute Basophils 0.1 03/27/18 0759: Anion Gap 10, Estimated GFR 53 L, BUN/Creatinine Ratio 22.0, Hemoglobin A1c 7.0 H, Magnesium 1.6, TSH 8.700 H, Free T4 1.02, Total T3 0.96 L, Thyroglobulin Antibody 28, Thyroid Peroxidase Ab 32 03/26/182358: Troponin I 0.07 03/26/182131: Urine Color YEL, Urine Clarity HAZY H, Urine pH 6.5, Ur Specific [place] 1.025, Urine Protein >=300 H, Urine Ketones NEG, Urine Nitrite NEG, Urine Bilirubin NEG, Urine Urobilinogen 0.2, Ur Leukocyte Esterase MOD H, Ur Microscopic SEDIMENT EXAMINED, Urine RBC 1-3, Urine WBC 50-75 H, Ur Epithelial Cells MANY H, Urine Bacteria PACKD H, Urine Mucus FEW, Urine Hemoglobin SMALL H, Urine Glucose NEG 03/26/18 2100: Anion Gap 11, Estimated GFR > 60, BUN/Creatinine Ratio 24.4, Glucose 193 H, Calcium 9.6, Magnesium 1.6, Total Bilirubin 0.5, AST 20, ALT 22, Alkaline Phosphatase 92, Troponin I 0.05, Total Protein 6.9, Albumin 3.8, Globulin 3.1, Albumin/Globulin Ratio 1.2, CBC w Diff NO MAN DIFF REQ, RBC 4.13 L, MCV 88.2, MCH 29.9, MCHC 33.9, RDW 13.6, MPV 9.0, Gran % 82.6 H, Lymphocytes % 9.3 L, Monocytes % 7.0, Eosinophils % 0.4, Basophils % 0.7, Absolute Granulocytes 10.8 H, Absolute Lymphocytes 1.2, Absolute Monocytes 0.9 H, Absolute Eosinophils 0.1 , Absolute Basophils 0.1 Microbiology 03/26 2132 URINE ROUT: Urine Culture - COMP KLEBSIELLA OXYTOCA Assessment/Plan Assessment/Plan Assessment: 1. Hypertension 2. Type 2 diabetes melena 3. Hyperlipidemia 4. Status post fall 5. Urinary tract infection 6. Mild troponin elevation, likely secondary to demand ischemia 7. Uncontrolled hypertension on presentation, now under control 8. 6 beat run of nonsustained ventricular tachycardia noted on telemetry Plan: * Continue current hypertension medications * Echocardiogram pending * Would give aspirin 81 mg daily if no contraindications * Antibiotics as per the medical team * Follow up in the office 1 week after discharge * Will plan on doing pharmacologic nuclear stress test as an outpatient for evaluation of positive troponin Continue telemetry? Yes
[2018-03-28] MEDS ORDERED: LEVO-T25 MCG PO ×2 (13:44→15:17)
[2018-03-28] MEDS ORDERED: LABETALOL HCL100 M1 PO ×2 (13:44→15:18)
[2018-03-28] MEDS ORDERED: ASPIRIN81 M4 PO ×2 (14:21→15:18)
[2018-03-28 14:52] VITALS: BP 166/66
--- NOTE | 2018-03-28 18:03 | ECHOCARDIOGRAM REPORT ---
TERRELL PERALES Age: 78 : 1940 Gender: F Exam Date: 03/28/2018 11:13 Exam Location: [address] Ht (in): 61 Wt (lb): 145 BSA: 1.70 BP: 130 / 60 Ordering Physician: Debbie Ortiz MD Referring Physician: Debbie Ortiz MD Technologist: Corey Leach [facility] Room Number: 174-1 Indications: Hypertension Rhythm: Sinus Technical Quality: Fair FINDINGS Left Ventricle Normal size left ventricle. Normal left ventricular wall thickness. Normal left ventricular ejection fraction visually estimated at > 60%. Normal left ventricular wall motion. Abnormal relaxation filling pattern of the left ventricle for age (stage 1 diastolic dysfunction). Right Ventricle Normal right ventricular size and function. Right Atrium Normal right atrial size. Left Atrium Normal left atrial size. Mitral Valve Moderate mitral annular calcification. Mitral valve thickened. Mild mitral regurgitation. Aortic Valve Diffuse thickening (sclerosis) of the aortic valve cusps without reduced excursion. No aortic stenosis. No aortic regurgitation. Tricuspid Valve Tricuspid valve not well visualized, grossly normal. Mild tricuspid regurgitation. No evidence of pulmonary hypertension. Pulmonic Valve Pulmonic valve not well visualized, grossly normal. Pericardium No pericardial effusion. Great Vessels Normal size aortic root. CONCLUSIONS Normal size left ventricle. Normal left ventricular wall thickness. Normal left ventricular ejection fraction visually estimated at > 60%. Abnormal relaxation filling pattern of the left ventricle for age (stage 1 diastolic dysfunction). Mild mitral regurgitation. Mild tricuspid regurgitation. Jae Talamantes M.D. (Electronically Signed) Final Date: 28 March 2018 18:03 MEASUREMENTS (Male / Female) Normal Values 2D ECHO LV Diastolic Diameter PLAX 4.5 cm 4.2 - 5.9 / 3.9 - 5.3 cm LV Systolic Diameter PLAX 2.8 cm 2.1 - 4.0 cm LV Fractional Shortening PLAX 37.8 % 25 - 46 % LV Ejection Fraction 2D Teich 68.0 % IVS Diastolic Thickness 1.1 cm LVPW Diastolic Thickness 1.0 cm LV Relative Wall Thickness 0.5 LVOT Diameter 1.9 cm Aortic Root Diameter 2.7 cm LA Systolic Diameter LX 2.5 cm 3.0 - 4.0 / 2.7 - 3.8 cm LA Volume 66.0 cm 18 - 58 / 22 - 52 cm Ascending Aorta Diameter 2.9 cm DOPPLER AV Peak Velocity 119.0 cm/s AV Peak Gradient 5.7 mmHg AV Mean Velocity 82.1 cm/s AV Mean Gradient 3.0 mmHg AV Velocity Time Integral 30.2 cm LVOT Peak Velocity 94.0 cm/s LVOT Peak Gradient 3.5 mmHg LVOT Mean Velocity 58.6 cm/s LVOT Mean Gradient 2.0 mmHg LVOT Velocity Time Integral 25.7 cm LVOT Stroke Volume 72.9 cm AV Area Cont Eq vti 2.4 cm AV Area Cont Eq pk 2.2 cm MV Peak Velocity 143.0 cm/s MV Peak Gradient 8.2 mmHg MV Mean Velocity 72.2 cm/s MV Mean Gradient 3.0 mmHg Mitral E Point Velocity 90.3 cm/s Mitral A Point Velocity 123.0 cm/s Mitral E to A Ratio 0.7 MV PHT Velocity 96.4 cm/s MV Deceleration Stearns 223.0 cm/s MV Pressure Half Time 129.7 ms MV Area PHT 1.7 cm MV Deceleration Time 426.0 ms TR Peak Velocity 263.0 cm/s TR Peak Gradient 27.7 mmHg Right Atrial Pressure 5.0 mmHg Pulmonary Artery Systolic Pressure 32.7 mmHg Right Ventricular Systolic Pressure 32.7 mmHg PV Peak Velocity 86.9 cm/s PV Peak Gradient 3.0 mmHg PV Mean Velocity 68.7 cm/s PV Mean Gradient 2.0 mmHg PV Velocity Time Integral 23.7 cm LV E' Lateral Velocity 6.0 cm/s Mitral E to LV E' Lateral Ratio 15.0 LV E' Septal Velocity 5.4 cm/s Mitral E to LV E' Septal Ratio 16.8
== END 2018-03-28 18:01 | disposition home health service (06) | DRG 305 ==
LOC: ERH 18:54 → 1NO 03-27 01:29 → ERHI 03-27 01:29 → ENRESERV 03-27 04:24 → 1NO 03-27 05:57 → ENPENDDIS 03-28 14:23 → ENTRNSPT 03-28 17:48 → EDTRNSPTSTS 03-28 17:55 → 1NO 03-28 18:01 → CMPTRNSPT 03-28 18:10
PROVIDERS: Physician Assistant; Student in an Organized Health Care Education/Training Program
DX: I16.0 Hypertensive urgency (principal); E87.1 Hypo-osmolality and hyponatremia; I47.2 Ventricular tachycardia; I24.8 Other forms of acute ischemic heart disease; I10 Essential (primary) hypertension; H81.09 Meniere's disease, unspecified ear; M25.512 Pain in left shoulder; S09.8XXA Other specified injuries of head, initial encounter; E11.40 Type 2 diabetes mellitus with diabetic neuropathy, unspecified; M11.261 Other chondrocalcinosis, right knee; B96.89 Other specified bacterial agents as the cause of diseases classified elsewhere; E78.00 Pure hypercholesterolemia, unspecified; K44.9 Diaphragmatic hernia without obstruction or gangrene; E02 Subclinical iodine-deficiency hypothyroidism; E78.5 Hyperlipidemia, unspecified; W10.8XXA Fall (on) (from) other stairs and steps, initial encounter; Y92.009 Unspecified place in unspecified non-institutional (private) residence as the place of occurrence of the external cause; Z90.710 Acquired absence of both cervix and uterus; Z88.0 Allergy status to penicillin; Z88.2 Allergy status to sulfonamides; Z88.8 Allergy status to other drugs, medicaments and biological substances; Z88.1 Allergy status to other antibiotic agents; Z91.041 Radiographic dye allergy status; F41.9 Anxiety disorder, unspecified
CPT/HCPCS: 1NSP; 36415; 36592; 73030-LT; 73562-RT; 81001; 82436; 86376; 86800; 87086; 93005; 93010; 93306; 96365; 96375; 96376; 97110-GO; 97116-GO; 97116-GP; 97161-GP; 97165-GO; G8987-GO; G8988-GO; G8989-GO; J0131; J0360; J0696; J1650; J1885